=== PATIENT | male | born 1965 | race Caucasian/White ===

== ENCOUNTER 2017-01-07 06:08 | Inpatient (IN) | payer BC ==
[2016-12-26 14:50] VITALS: BMI 44.0
--- NOTE | 2016-12-26 15:23 | PAT Medication Instructions ---
Service Date Dec 26, 2016. Current Home Medication List Ibuprofen Tab (Advil), 800 MG PO PRN Lisinopril (Prinivil), 5 MG PO QAM Medication Instructions For Your Scheduled Surgery - Hold the following medications 7-10 days prior to surgery per surgeon's instructions: Ibuprofen Tab (Advil), 800 MG PO PRN - Hold the following medications the morning of surgery: Lisinopril (Prinivil), 5 MG PO QAM Nothing to eat or drink after midnight If you have any questions please call us at [phone] or [phone] or [phone]
[2016-12-26 15:50] LABS: BASO % 0.3 %; BASO ABS # 0.02 K/uL (0-0.2); COMPLETE YES; EOS % 0.7 %; HEMATOCRIT 42.5 % (42-52); IG% 0.2 %; LYMPH % 29.9 %; LYMPH ABS # 1.72 K/uL (1.2-3.4); MEAN CELL VOLUME 87.1 fL (80-100); MEAN CORPUSCULAR HEMOGLOBIN 28.7 pg (25-34); MEAN CORPUSCULAR HGB CONC 32.9 g/dl (32-36); MEAN PLATELET VOLUME 10.7 fL (7.4-10.4); MONO % 5.7 %; NEUT % 63.2 %; PLATELET COUNT 229 K/uL (130-400); RED BLOOD COUNT 4.88 M/uL (4.7-6.1); WHITE BLOOD COUNT 5.75 K/uL (4.8-10.8)
--- NOTE | 2016-12-26 15:50 | DIAGNOSTIC IMAGING REPORT ---
TWO VIEW CHEST CLINICAL HISTORY: Preoperative examination. FINDINGS: PA and lateral chest radiographs are obtained. No prior studies are available for comparison at the time of dictation. The examination is degraded by large body habitus. The cardiomediastinal silhouette is unremarkable. The lungs and pleural spaces are clear. There is no pneumothorax. The bony thorax appears intact. IMPRESSION: No active disease in the chest. Electronically signed by: Ishmael Kuhn M.D. 12/26/2016 3:48 PM Dictated Date/Time: 12/26/2016 3:47 PM
[2016-12-26 15:56] LABS: URINE APPEARANCE CLEAR (CLEAR); URINE BILIRUBIN NEG (NEG); URINE COLOR YELLOW; URINE NITRITE NEG (NEG); URINE SPECIFIC GRAVITY 1.023 (1.000-1.030); UROBILINOGEN NEG (NEG)
[2016-12-26 15:57] LABS: PROTHROMBIN TIME (PATIENT) 10.3 SECONDS (9.0-12.0)
[2016-12-26 16:12] LABS: MANUAL MICROSCOPIC REQUIRED? NO; REVIEW REQ? NO
[2016-12-26 16:25] LABS: BUN/CREATININE RATIO 14.3 (10-20); CALCIUM 8.8 mg/dl (8.5-10.1); CREATININE 1.2 mg/dl (0.60-1.40); POTASSIUM 3.8 mmol/L (3.5-5.1)
--- NOTE | 2016-12-29 16:55 | HISTORY & PHYSICAL EXAMINATION ---
DATE OF ADMISSION: 01/07/2017 CHIEF COMPLAINT: Right hip pain. HISTORY OF PRESENT ILLNESS: This 51-year-old white male presents to the office for evaluation of his right hip. He has had right hip pain for several months. Pain has become worse over the last 6 months. He does have difficulty with ambulation and activities of daily living. No specific trauma. X-rays and MRI have been obtained. No numbness or tingling. He is ambulatory with a limp. He has tried conservative care measures including activity modification, oral anti-inflammatories, and physical therapy without improvement. He is also using Meloxicam without improvement. He elects to proceed with right total hip arthroplasty in hopes of alleviating his pain. PAST MEDICAL HISTORY: Significant for hypertension, osteoarthritis, and obesity. PREVIOUS SURGERIES: Right shoulder arthroscopy, left knee arthroscopy. ALLERGIES: KNOWN ALLERGY TO PPD. CURRENT MEDICATIONS: Lisinopril 5 mg p.o. daily. SOCIAL HISTORY: The patient is retired from the [employer]. No tobacco use, occasional ETOH use. . FAMILY HISTORY: Significant for hypertension. REVIEW OF SYSTEMS: Significant for above stated conditions, otherwise unremarkable. PHYSICAL EXAMINATION: GENERAL: Well-developed, well-nourished, large white male in no acute distress. Sitting on a bed. Alert and oriented. SKIN: Warm and dry with good turgor. No rashes or lesions. No ecchymosis or erythema. HEENT: Normocephalic, atraumatic. Eyes PERRLA, EOMI. Nares patent bilaterally without turbinate enlargement. Oropharynx without erythema or exudate. No lesions noted. Uvula midline. Oral mucosa moist. Very good dentition. HEART: RRR. No MGR. LUNGS: Clear to auscultation bilaterally. No crackles, rhonchi or wheezing. Good air movement. ABDOMEN: Obese. Bowel sounds present x4, soft, nontender. No organomegaly. No masses. MUSCULOSKELETAL: Right hip has no obvious asymmetry or deformity. He does have an external rotation contracture. Flexion to about 90 degrees before onset of pain. Internal rotation is really only to neutral. External rotation of around 20 degrees before he is limited by pain. Ambulatory with an antalgic gait. No pain with palpation over his greater trochanter. Strength is 5/5 with excellent quad tone. NEUROLOGIC: Cranial nerves II through XII are intact. Gross sensation is intact across the lower extremities by soft touch. Peripheral pulses are 2+. DATA: Radiographic images previously obtained show end-stage DJD of the right hip with periarticular osteophytes, subchondral sclerosis, and joint space narrowing. IMPRESSION: Right hip end-stage degenerative joint disease. PLAN: Informed written consent was obtained to proceed with right total hip arthroplasty on 01/07/2017. Preoperative lab work, EKG, and chest x-ray have been ordered. Medical clearance has been requested from Dr. Macedo. The patient already has a walker and crutches. He would like to do home health for 2 weeks and then outpatient PT. Postoperative prescriptions for Percocet and Coumadin will be provided at discharge from the hospital. Call with any other concerns.
[~2017-01-07] VITALS: Ht 182.9 cm; Wt 146.6 kg
[2017-01-07] VITALS (19 sets, daily range): BP systolic 116–157; BP diastolic 77–101; PULSE 67–104; TEMP 36.4–36.7; O2SAT 92–99; Ht 182.9 cm; Wt 146.6 kg
[~2017-01-07 06:08] MED LIST: CEFAZOLIN 3000 MG/65 ML D5W 65 ML IV SCH; IBUP-103 PO; LACTATED RINGER'S 1000ML 1,000 ML IV SCH; LACTATED RINGER'S 1000ML IV SCH; LACTATED RINGER'S 500 ML IV SCH; LISI-729 PO; ROPIVACAINE 5MG/ML 30 ML 150 MG, BUPIVACAINE/EPINEPHR 0.5% MPF 30 ML, KETOROLAC TROMETH... INFIL SCH; TRANEXAMIC ACID INJ 1,000 MG in SODIUM CHLORIDE 0.9% 100ML 100 ML IV SCH
--- NOTE | 2017-01-07 06:20 | History & Physical Bridge Note ---
H&P Re-Evaluation Bridge Note: I have examined the patient, reviewed the History & Physical and in the interval since the performance of the History & Physical I have noted the following changes of clinical significance: No changes noted
[2017-01-07] MEDS ORDERED: BUPIVACAINE 0.5 % 5 MG/1 ML PF 10ML VIAL ONE (06:25)
[2017-01-07] MEDS ORDERED: POVIDONE-IODINE OP SOLN 30 ML BTL ONE (06:28)
[2017-01-07] MEDS ORDERED: ORTHO JOINT ANESTHETIC ONE (06:28)
[2017-01-07] MEDS ORDERED: MIDAZOLAM HCL 1 MG/ML 2ML VIAL ONE ×2 (06:34→06:39)
[2017-01-07] MEDS ORDERED: PROPOFOL IV EMULSION 10 MG/ML 20 ML VIAL IV ONE ×2 (06:34→07:29)
[2017-01-07] MEDS ORDERED: FENTANYL CITRATE INJ 50 MCG/1 ML 2 ML VIAL ONE ×2 (06:34→06:39)
[2017-01-07] MEDS ORDERED: LIDOCAINE HCL 2% 2 ML VIAL (20MG/ML) ONE (06:34)
[2017-01-07] MEDS ORDERED: MoRPHine SULFATE PF 1 MG/ML 10 ML AMP/VIAL ONE (06:41)
[2017-01-07] MEDS ORDERED: EpHEDrine SULFATE 50MG/5ML SYR ONE (07:25)
[2017-01-07] MEDS ORDERED: ONDANSETRON INJ 2 MG/ML 2 ML VIAL ONE (08:27)
[2017-01-07] MEDS ORDERED: LACTATED RINGER'S 1000ML 500 ML IV PRN (08:28)
[2017-01-07] MEDS ORDERED: SODIUM CHLORIDE 0.9% 1000ML 1,000 ML IV PRN (08:28)
[2017-01-07] MEDS ORDERED: NALOXONE HCL INJ 1 MG in SODIUM CHLORIDE 0.9% 1000ML 1,000 ML IV PRN ×4 (08:28)
[2017-01-07] MEDS ORDERED: NALOXONE HCL INJ 0.08 MG in SYRINGE 1.8 ML IV PRN (08:28)
[2017-01-07] MEDS ORDERED: ONDANSETRON INJ 2 MG/ML 2 ML VIAL IV PRN (08:30)
[2017-01-07] MEDS ORDERED: NO NARCOTICS OR SEDATIVES SCH (08:30)
[2017-01-07] MEDS ORDERED: NALOXONE HCL 0.4 MG/1 ML VIAL/CARP IV PRN (08:30)
[2017-01-07] MEDS ORDERED: NALBUPHINE HCL INJ 10 MG/ML AMP IV PRN (08:30)
[2017-01-07] MEDS ORDERED: PROMETHAZINE HCL INJ 25 MG in SODIUM CHLORIDE 0.9% 50ML 50 ML IV PRN (08:30)
[2017-01-07] MEDS ORDERED: EpHEDrine SULFATE INJ 50 MG/ML AMP IV PRN ×2 (08:30→10:00)
[2017-01-07] MEDS ORDERED: MoRPHine SULFATE PF 1 MG/ML 10 ML AMP/VIAL EPI PRN (08:30)
--- NOTE | 2017-01-07 08:47 | [facility] Post Operative Brief Note ---
Immediate Operative Summary Operative Date Jan 07, 2017. Pre-Operative Diagnosis Right Hip End-Stage Degenerative Joint Disease Post-Operative Diagnosis Right Hip End-Stage Degenerative Joint Disease Procedure(s) Performed Right Total Hip Arthroplasty--Uncemented Surgeon Dr. Weiss Pairing Machine Operator Surgeon(s) GINGER Yanez/ william med student Estimated Blood Loss 200cc Findings severe djd Fluids (cc crystalloids) 1450 Specimens A. Right Femoral Head Drains none Anesthesia spinal Complication(s) None Disposition Recovery Room / PACU
[2017-01-07] MEDS ORDERED: TAMSULOSIN HCL 0.4 MG CAP PO PRN (09:00)
[2017-01-07] MEDS ORDERED: BISACODYL 10 MG SUPP PR PRN (09:00)
[2017-01-07] MEDS ORDERED: ALUMINUM/MAGNESIUM/SIMETH (MAALOX MAX) 30 ML UDC PO PRN (09:00)
[2017-01-07] MEDS ORDERED: MAGNESIUM HYDROXIDE SUSP 30 ML UDC PO PRN (09:00)
[2017-01-07] MEDS ORDERED: ACETAMINOPHEN 325 MG TAB PO PRN (09:00)
--- NOTE | 2017-01-07 09:13 | OPERATIVE REPORT ---
DATE OF OPERATION: 01/07/2017 PREOPERATIVE DIAGNOSIS: Severe osteoarthritis with contracture, right hip. POSTOPERATIVE DIAGNOSIS: Same. OPERATION PERFORMED: Noncemented right total hip replacement. SUMMARY OF IMPLANTS: Size 56 shell acetabular cup hole eliminator, cancellous screw 6.5 x 30, acetabular liner 36 x 56 neutral, femoral stem 6 high offset, femoral head 36+5. ESTIMATED BLOOD LOSS: 200 mL. CRYSTALLOID: 1450 mL. PERIOPERATIVE SITUATION: Medically cleared male with intractable hip pain, has severe disease from chronic femoral acetabular impingement. At this point in time wants to proceed with surgical treatment. OPERATION: The patient appropriately identified, site verified, consent verified, 3 grams of Ancef confirmed as being given, as well as 1 gram of TXA. The patient was placed in left lateral decubitus position and the right lower extremity prepped and draped in usual routine fashion. A posterolateral approach to the hip was made. Sharp dissection carried to skin and blunt dissection down to the fascia. This was then incised under direct vision. Retractors placed. He was a very large man. Care taken to protect the sciatic nerve. Short external rotators were very contracted, released. The capsule was very contracted and excised. Marginal osteophytes removed from the acetabulum and then the hip dislocated. The femoral neck resected. Acetabular exposure required some trimming of further osteophytes, some labral debris, and then serial reaming up to a 56 and a 56 cup impacted into appropriate anteversion and inclination with excellent rim fit. A 6.5 x 30 screw was then placed superiorly to purchase the cup as well, excellent bite obtained. The wound was then irrigated, the trial liner seated. The femur was then flexed, internally rotated. The proximal femur prepared with the snuff box finisher, the canal finder, the lateralizing rasp, with serial broaching up to a size 6 with a size 6 fitting extremely well. The best stability and leg lengths were with a +5 head. All remaining trial implants were then removed. The wound irrigated with Betadine, Pulsavac. Hole eliminator seated, permanent liner seated, permanent stem and head seated. The hip reduced. It was stable to flexion beyond 100 degrees, internal rotation beyond 25 degrees with the leg flexed at 90. Adduction and external rotation, and extension and external rotation did not produce any dislocation. There was no impingement. The wound was then irrigated with Betadine, Pulsavac and then injected with the Orthomix and then closed with #2 Vicryl, #1 Vicryl, 2-0 Vicryl and stainless steel clips. Appropriate dressing applied and the patient transferred to recovery room in satisfactory condition having tolerated the procedure well. DVT prophylaxis per protocol. The summary of implants is noted above. EBL 200 mL. Crystalloid 1450. I attest to the content of the Intraoperative Record and any orders documented therein. Any exceptio ns are noted below.
--- NOTE | 2017-01-07 09:31 | DIAGNOSTIC IMAGING REPORT ---
PELVIS 1 OR 2 VIEW ROUTINE CLINICAL HISTORY: s/p R hip NGUYEN postoperative evaluation COMPARISON: None. DISCUSSION: Total right hip replacement. Good contact between prosthetic and underlying bone. Expected postoperative soft tissue change. IMPRESSION: Anatomic alignment status post total right hip replacement Electronically signed by: Tristen Prakash M.D. 01/07/2017 9:29 AM Dictated Date/Time: 01/07/2017 9:29 AM
--- NOTE | 2017-01-07 09:54 | Anesthesiology Progress Note ---
Anesthesia Post Op Note Date & Time Jan 07, 2017 at 09:53 Vital Signs Pain Intensity: 0 Vital Signs Past 12 Hours Date Time Temp Pulse Resp B/P Pulse Ox O2 Delivery O2 Flow Rate FiO2 01/07/17 09:45 68 16 129/71 97 Nasal Cannula 2 01/07/17 09:30 67 16 129/76 97 Nasal Cannula 2 01/07/17 09:20 36.7 66 21 125/69 97 Nasal Cannula 2 01/07/17 09:10 63 20 123/69 99 Nasal Cannula 2 01/07/17 09:02 36.8 69 12 119/73 97 Nasal Cannula 2 01/07/17 06:23 36.6 67 20 157/101 94 Room Air Notes Mental Status: alert / awake / arousable, participated in evaluation Pt Amnestic to Procedure: Yes Nausea / Vomiting: adequately controlled Pain: adequately controlled Airway Patency, RR, SpO2: stable & adequate BP & HR: stable & adequate Hydration State: stable & adequate Neuraxial Anesthesia: was administered, sensory block is resolving Anesthetic Complications: no major complications apparent
[2017-01-07] MEDS ORDERED: ATROPINE SULFATE 0.1 MG/ML 5ML SYR IV PRN (10:00)
--- NOTE | 2017-01-07 11:17 | OPERATIVE REPORT ---
DATE OF OPERATION: 01/07/2017 PREOPERATIVE DIAGNOSIS: Right hip endstage degenerative joint disease. POSTOPERATIVE DIAGNOSIS: Right hip same. PROCEDURE: Right hip total hip arthroplasty using DePuy implants. SURGEON: Dr. Weiss. VELVET CUTTER: Rodney Ndiaye PA-C. HISTORY OF PRESENT ILLNESS: This 51-year-old white male presented to the office with complaints of right hip pain that had been ongoing for several months. Pain became worse over the last 6 months. He was having difficulty with activities of daily living. He had tried conservative care measures without success. Preoperative x-rays were obtained. He elected to proceed with surgical intervention after being educated about potential risks and outcomes. OPERATION: The patient was administered a spinal anesthetic and then taken to the operating room where he was given sedation. He was prepped and draped in usual sterile fashion. Please see Dr. Weiss's operative report for specifics of the procedure. I was present for the entire case from initial patient positioning through final wound closure. Assistance was provided in tissue retraction, hemostasis, trial implant placement, final implant placement, and final wound closure. The patient was taken to the recovery room in satisfactory condition. I attest to the content of the Intraoperative Record and any orders documented therein. Any exceptio ns are noted below.
[2017-01-07] MEDS: D5W AND 1/2NSS + 20MEQ KCL 1,000 ML IV SCH ×2 (11:32→22:07)
[2017-01-07] MEDS: LISINOPRIL 5 MG TAB PO SCH (11:33)
[2017-01-07] MEDS: DOCUSATE SODIUM 100 MG CAP PO SCH ×3 (11:33→21:19)
[2017-01-07] MEDS: PANTOprazole SOD 40 MG TAB PO SCH (11:33)
[2017-01-07] MEDS: MULTIVITAMIN TAB PO SCH (11:33)
--- NOTE | 2017-01-07 11:40 | ORTHOPEDICS PROGRESS NOTE ---
DATE: 01/07/2017 Status post right total hip replacement. The patient is very comfortable. Has minimal if any discomfort. Denies any chest pain, nausea, vomiting, shortness of breath, fever, chills, or headache. Vital signs are stable. He is afebrile. Neurovascular check, femoral sciatic nerve is excellent. Postop x-rays look excellent. ASSESSMENT: Overall, doing well. Continue care pathway. Start Coumadin this evening. Can be out of bed. Weightbearing to tolerance with a walker or crutches pending his comfort. Expect discharge tomorrow based on his overall medical profile.
[2017-01-07] MEDS: FERROUS GLUCONATE 324 MG TAB PO SCH ×2 (12:34→17:13)
[2017-01-07] MEDS ORDERED: DEXAMETHASONE INJ 10 MG in SYRINGE 0 ML IV ONE (13:00)
[2017-01-07] MEDS: ACETAMINOPHEN IV 1,000 MG in EMPTY BAG 0 ML IV SCH ×2 (13:24→22:07)
[2017-01-07] MEDS: DiphenhydrAMINE HCL 50 MG/ML VIAL IV PRN ×2 (13:24→19:51)
[2017-01-07] MEDS: CEFAZOLIN IV 2,000 MG in DEXTROSE 5% 50ML 50 ML IV SCH ×2 (14:06→21:20)
[2017-01-07] MEDS ORDERED: TRANEXAMIC ACID INJ 1,000 MG in SODIUM CHLORIDE 0.9% 100ML 100 ML IV ONE (15:00)
[2017-01-07] MEDS ORDERED: WARF2TAB PO (15:40)
[2017-01-07] MEDS ORDERED: OXYC-57 PO (15:40)
[2017-01-07] MEDS ORDERED: WARFARIN SOD 5 MG TAB PO ONE (16:00)
[2017-01-07] MEDS: KETOROLAC TROMETHAMINE 30 MG/ML VIAL IV. SCH ×2 (18:15→23:28)
[2017-01-08] VITALS: O2SAT 92
[2017-01-08 01:00] VITALS: O2SAT 92
[2017-01-08 02:00] VITALS: O2SAT 90
[2017-01-08] MEDS ORDERED: METOCLOPRAMIDE HCL INJ 5 MG/ML 2 ML VIAL IV PRN (02:00)
[2017-01-08] MEDS ORDERED: ONDANSETRON INJ 2 MG/ML 2 ML VIAL IV PRN (02:00)
[2017-01-08] MEDS ORDERED: DiphenhydrAMINE HCL 50 MG/ML VIAL IV PRN (02:00)
[2017-01-08] MEDS ORDERED: DC INTRASPINAL MORPHINE ONE (02:00)
[2017-01-08] MEDS ORDERED: MoRPHine SULFATE 2 MG/ML CARP IV PRN (02:00)
[2017-01-08] MEDS ORDERED: OXYCODONE HCL IR 5 MG TAB (IMMEDIATE RELEASE) PO PRN (02:00)
[2017-01-08] MEDS ORDERED: KETOROLAC TROMETHAMINE 30 MG/ML VIAL IV. SCH (02:00)
[2017-01-08 03:53] VITALS: BP 131/74; PULSE 77; TEMP 36.7; O2SAT 96
[2017-01-08] MEDS: KETOROLAC TROMETHAMINE 30 MG/ML VIAL IV. SCH (05:51)
[2017-01-08] MEDS: ACETAMINOPHEN IV 1,000 MG in EMPTY BAG 0 ML IV SCH (05:51)
[2017-01-08 06:13] LABS: COMPLETE YES; HEMATOCRIT 36.1 % (42-52); IG% 0.3 %; LYMPH % 5.6 %; LYMPH ABS # 0.85 K/uL (1.2-3.4); MEAN CELL VOLUME 88.3 fL (80-100); MEAN CORPUSCULAR HEMOGLOBIN 28.9 pg (25-34); MEAN CORPUSCULAR HGB CONC 32.7 g/dl (32-36); MEAN PLATELET VOLUME 10.9 fL (7.4-10.4); MONO % 9.9 %; NEUT % 84.2 %; PLATELET COUNT 189 K/uL (130-400); RED BLOOD COUNT 4.09 M/uL (4.7-6.1); WHITE BLOOD COUNT 15.16 K/uL (4.8-10.8)
[2017-01-08 06:15] LABS: PROTHROMBIN TIME (PATIENT) 11.1 SECONDS (9.0-12.0)
[2017-01-08 06:42] LABS: BUN/CREATININE RATIO 17.2 (10-20); CALCIUM 8.3 mg/dl (8.5-10.1); CREATININE 1.4 mg/dl (0.60-1.40); POTASSIUM 4.8 mmol/L (3.5-5.1)
[2017-01-08 07:10] VITALS: BP 118/58; PULSE 71; TEMP 36.9; O2SAT 96
--- NOTE | 2017-01-08 07:16 | PROGRESS NOTE ---
DATE: 01/08/2017 Postop check right total hip replacement. The patient is doing well, has no major issues. Had one episode of nausea and vomiting yesterday but none since. Kept dinner down, doing well. Denies any chest pain, shortness of breath, fever, chills, headache. Vital signs are stable, afebrile. Neurovascular check femoral sciatic nerve is excellent. Wound clean, dry and intact. Hip located. Hematocrit stable. Electrolytes are good. ASSESSMENT: Overall, doing well. Will discharge today after PT, OT. Coumadin per nomogram. Discharge on 4 mg of Coumadin.
--- NOTE | 2017-01-08 07:20 | DISCHARGE SUMMARY ---
CHIEF COMPLAINT: Right hip pain. HISTORY OF PRESENT ILLNESS: The patient is admitted for right total hip replacement. Her hospital course has been uneventful. He is mobile. His pain is well managed. He notes no additional nausea, vomiting. Denies chest pain, shortness of breath, fever, chills, headache, nausea, vomiting. PAST MEDICAL HISTORY: Remarkable for hypertension, osteoarthritis, and obesity. PAST SURGICAL HISTORY: Include right shoulder arthroscopy, left knee arthroscopy. ALLERGIES: None to medications. HE IS ALLERGIC TO PPD. CURRENT MEDICATIONS: Include lisinopril 5 mg daily. 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 No tobacco or alcohol use, . FAMILY HISTORY: Remarkable for hypertension. REVIEW OF SYSTEMS: Reveals nothing additional. ASSESSMENT AND PLAN: Overall, doing well status post right total hip replacement. He will be discharge today after physical therapy, occupational therapy. We will discharge him on 4 mg of Coumadin daily. Follow up in 2 weeks for staple removal.
[2017-01-08] MEDS: D5W AND 1/2NSS + 20MEQ KCL 1,000 ML IV SCH (08:00)
--- NOTE | 2017-01-08 08:11 | Discharge Instructions ---
Discharge Instructions Admission Reason for Admission: Right Hip Degenerative Joint Disease Discharge Discharge Diagnosis / Problem: Right hip s/p total hip replacement Discharge Goals Goal(s): Decrease discomfort, Improve function, Increase independence Activity Recommendations Activity Limitations: as noted below Lifting Limitations: gradually increase as tolerated Exercise/Sports Limitations: until after follow-up appointment Shower/Bathe: keep incision dry Driving or Machine Use: No driving until cleared by Dr. Weiss Weightbearing Status: Right weightbearing (as tolerated) . Instructions / Follow-Up Instructions / Follow-Up New Medicine: * You will likely be taking one or more of these medicines: 1. Percocet - Take, as directed, when you need it, every four to six hours to control your pain. 2. Iron Sulfate - Take three times each day for the month after surgery to help you replace the blood lost during surgery. 3. Coumadin - Thins your blood to lessen the chance of forming a blood clot. The dose of this is different for each person and is based on your blood tests that are done twice a week. * The most common side effects of pain medicine and iron are nausea and constipation. If nausea or constipation is too much of a problem or if you have any questions about your new medicines or doses, call [facility] at . We will try to help you manage these issues. VERY IMPORTANT TO READ AND REVIEW" Blood Clots and Blood Thinning Medicine: * You are given Coumadin during the immediate post-operative period to lessen the risk of blood clots forming in your legs and/or lungs. Coumadin is usually given for six weeks after surgery. * The prescription is for 2 mg tablets. At discharge, you should understand your dose and take it all at the same time every day, preferably after dinner. * You need to get your blood checked 1 - 2 times per week for six weeks, or as directed. * If your dose needs to change, we will call you. Do not take your medication on the day of the blood test until we call you. * If you don't hear from us after your blood draws, keep taking the same dose. Pain: * The immediate post-operative period after hip replacement surgery is often quite painful. * You are given a prescription for pain medicine. You should take it, as directed, when you need it, especially before physical therapy and before going to bed. Pain that interferes with sleep is very common and can last several months. * You will likely need pain medicine for the first two to four weeks. It will not stop all of the pain. The pain will lessen and as you feel better, you may change to milder pain medicine such as Tylenol. * The most common side effects of pain medicine are nausea and constipation, so don't take more than you need. Physical Therapy: * Follow the "Hip Precautions Instructions." * In some cases, the social science teacher at the hospital will arrange to have a therapist come to your house for the first couple of weeks to help you learn these skills. * You need to practice on your own or with the help of a family member as needed. * When you learn these skills, most of the therapy can be done on your own. Home Exercise: * You were shown a series of exercises in the hospital. Do these exercises three to four times each day including the exercises you were shown in physical therapy. Walking: * Get up and walk several times each day. For the first four weeks, try not to stand or walk for more than one hour at a time. If you do stand or walk for more than one hour, you will not hurt anything, but your leg will likely swell. * As you feel comfortable, you may change from the walker or crutches to a cane and then to independent walking. SELF CARE INSTRUCTIONS AFTER TOTAL HIP REPLACEMENT Until the incision and soft tissues around your hip have healed, there is a possibility that the hip prosthesis could dislocate. A. Observe the following precautions to prevent dislocation: 1. Don't bend your hip greater than 90 degrees. 2. Avoid crossing your legs or ankles while standing or lying. 3. Sit with your feet placed 6 inches apart. 4. When sitting, keep your knees below your hips. Sit on a firm surface, avoid deep, soft chairs and couches. Use an elevated toilet seat in the bathroom. 5. Don't bend over at the waist. Use a long handled shoehorn and a sock aid to help you put on your shoes and socks. A environmental health and safety manager can help you package pick up objects that are too high or too low to reach. 6. Keep car riding to a minimum for at least one month after surgery. B. Your balance may be shaky for a while. Use crutches or a walker until directed by your doctor. C. Use hand rails when walking on stairs. D. Wear low heeled shoes with non-slip soles. E. Be sure that your floors are free of things that could trip you - throw rugs , electrical cords, small objects. Avoid wet and waxed floors, especially with crutches and canes. F. Try to walk several times a day with rest periods between. G. Continue with all the exercises taught to you in the hospital. Again, make walking a part of your daily routine. VERY IMPORTANT TO READ AND REVIEW A. Take Coumadin, or Lovenox (blood thinning medications) as directed by your doctor. If you are on Coumadin, have a pro-time (blood test) drawn according to your doctor's instructions. This will tell the doctor how well the Coumadin is thinning your blood. B. There are a few signs you need to watch for after you are home. If you notice any of the followin. Increased severe hip pain. Some pain is expected especially when you exercise. 2. Increased swelling in your leg or knee; pain or swelling of the calf muscle in either lower leg. 3. Any fluid drainage from the incision. 4. Shortness of breath or chest pain. TEDs/Elastic Stockings: * The white elastic stockings help limit swelling and prevent blood clots from forming in your legs. The more you wear them, the more they work. * Wear them for six weeks. Prevention of Infection: * Take antibiotics one hour before any dental cleaning, dental work, urological procedure, gastrointestinal procedure or any invasive surgery in order to prevent your new joint from getting infected. * You may get the antibiotics from the doctor performing the procedure or we will call in a prescription to the pharmacy of your choice. Call the office for a prescription at least 2 days prior to your appointment. Things to Watch For: * Drainage from the incision site that occurs more than one week after your surgery. * Severely increased leg pain or swelling. * Increased redness at the incision site. * Fever above 101 degrees Fahrenheit. * Unusual chest pain or shortness of breath. * Unusual pain or burning with urination. Current Hospital Diet Patient's current hospital diet: Regular Diet Discharge Diet Recommended Diet: Regular Diet Procedures Procedures Performed: Right Total Hip Arthroplasty--Uncemented Pending Studies Studies pending at discharge: no Medical Emergencies . Who to Call and When: Medical Emergencies: If at any time you feel your situation is an emergency, please call 911 immediately. . Non-Emergent Contact Non-Emergency issues call your: Primary Care Provider, Surgeon Call Non-Emergent contact if: temperature is above 100.5, wound has increased drainage, wound has increased redness, wound has increased pain, you have any medication questions . "Provider Documentation" section prepared by Rodney Ndiaye PA-C. VTE Core Measure Inpt VTE Proph given/why not?: Warfarin (Coumadin), T.E.D. Stockings, SCD's [place] Drug Monitoring Program Search Results: patient reviewed within database, no issues identified
--- NOTE | 2017-01-08 08:11 | Orthopedic Progress Note ---
Orthopedic Progress Note Date of Service Jan 08, 2017. Subjective Post OP Day: 1 Reports: feeling well, pain controlled w PO medications, Denies: SOB, calf pain , chest pain, complaints, light headedness, nausea / vomiting (vomited x 1 yesterday, but none overnight) Additional Notes: desires to go home today Objective calves soft nontender, N/V intact, hip located, capillary refill less than 2 sec., dressing C/D/I, incision C/D/I, A&O x3, toes mobile, CMS intact moderate drainage on bandages Date Time Temp Pulse Resp B/P Pulse Ox O2 Delivery O2 Flow Rate FiO2 01/08/17 07:10 36.9 71 16 118/58 96 Room Air 01/08/17 03:53 36.7 77 16 131/74 96 Room Air 01/08/17 02:00 16 90 01/08/17 01:00 16 92 01/08/17 00:00 16 92 01/07/17 23:35 36.6 74 16 116/77 93 Room Air 01/07/17 23:00 18 93 01/07/17 22:00 18 92 01/07/17 21:00 19 93 01/07/17 20:00 22 94 01/07/17 19:25 Room Air 01/07/17 19:00 17 94 01/07/17 18:00 16 93 01/07/17 17:00 16 93 01/07/17 16:00 16 95 01/07/17 15:24 36.7 83 18 148/89 94 Room Air 01/07/17 15:00 17 94 01/07/17 14:00 16 95 01/07/17 13:22 93 16 136/92 93 01/07/17 13:00 16 95 01/07/17 12:00 104 16 146/85 95 01/07/17 12:00 16 93 01/07/17 11:00 88 16 135/84 94 01/07/17 11:00 16 94 01/07/17 10:30 72 17 122/82 96 01/07/17 10:10 96 Nasal Cannula 2.0 01/07/17 10:00 97 Nasal Cannula 2.0 01/07/17 10:00 36.4 67 17 121/79 99 Nasal Cannula 2.0 01/07/17 10:00 16 97 01/07/17 09:45 68 16 129/71 97 Nasal Cannula 2 01/07/17 09:30 67 16 129/76 97 Nasal Cannula 2 01/07/17 09:20 36.7 66 21 125/69 97 Nasal Cannula 2 01/07/17 09:10 63 20 123/69 99 Nasal Cannula 2 01/07/17 09:02 36.8 69 12 119/73 97 Nasal Cannula 2 Laboratory Results 24 Hours: Test 01/08/17 05:49 White Blood Count 15.16 K/uL Red Blood Count 4.09 M/uL Hemoglobin 11.8 g/dL Hematocrit 36.1 % Mean Corpuscular Volume 88.3 fL Mean Corpuscular Hemoglobin 28.9 pg Mean Corpuscular Hemoglobin Concent 32.7 g/dl Platelet Count 189 K/uL Mean Platelet Volume 10.9 fL Neutrophils (%) (Auto) 84.2 % Lymphocytes (%) (Auto) 5.6 % Monocytes (%) (Auto) 9.9 % Eosinophils (%) (Auto) 0.0 % Basophils (%) (Auto) 0.0 % Neutrophils # (Auto) 12.76 K/uL Lymphocytes # (Auto) 0.85 K/uL Monocytes # (Auto) 1.50 K/uL Eosinophils # (Auto) 0.00 K/uL Basophils # (Auto) 0.00 K/uL Prothromb Time International Ratio 1.0 Prothrombin Time 11.1 SECONDS Assessment & Plan Assessment: Right hip post op day 1 s/p total hip arthroplasty Plan: PT/OT today anticipate D/C to home with home health later today if he does well with therapy coumadin per nomogram continue total hip precautions dressing changed by me. wound looks good. No current active drainage. Discharge Planning Discharge Planning: home with home health Pain Management: Percocet DVT Prophylaxis: TEDs, SCDs, Coumadin
[2017-01-08] MEDS: PANTOprazole SOD 40 MG TAB PO SCH (09:02)
[2017-01-08] MEDS: FERROUS GLUCONATE 324 MG TAB PO SCH (09:02)
[2017-01-08] MEDS: LISINOPRIL 5 MG TAB PO SCH (09:04)
[2017-01-08] MEDS: DOCUSATE SODIUM 100 MG CAP PO SCH (09:04)
[2017-01-08] MEDS: MULTIVITAMIN TAB PO SCH (09:04)
[2017-01-08 09:23] VITALS: BP 118/58; PULSE 71; TEMP 36.9; O2SAT 96
[2017-01-08] MEDS ORDERED: WARFARIN SOD 5 MG TAB PO SCH (12:00)
== END 2017-01-08 11:36 | disposition home health service (06) | DRG 470 ==
LOC: ENRESERVTM → ENRESERVDT → C.ACU 06:08 → C.3E 06:20 → EEVIPCON 01-21 10:45
PROVIDERS: ADMIT Physical Medicine & Rehabilitation Sports Medicine; ATTEND Physical Medicine & Rehabilitation Sports Medicine
PROC: 0SR90JA Replacement of Right Hip Joint with Synthetic Substitute, Uncemented, Open Approach (ICD-10-PCS; principal; 2017-01-07 08:50)
DX: M16.11 Unilateral primary osteoarthritis, right hip (principal); Z68.41 Body mass index [BMI] 40.0-44.9, adult; M24.551 Contracture, right hip; R11.2 Nausea with vomiting, unspecified; I10 Essential (primary) hypertension; E66.01 Morbid (severe) obesity due to excess calories; Z79.899 Other long term (current) drug therapy

== ENCOUNTER 2017-01-18 15:33 | Emergency (ER) | payer BC ==
[~2017-01-18] VITALS: Ht 182.9 cm; Wt 145.0 kg
[~2017-01-18 15:33] MED LIST changes: -CEFAZOLIN 3000 MG/65 ML D5W 65 ML IV SCH; -IBUP-103 PO; -LACTATED RINGER'S 1000ML 1,000 ML IV SCH; -LACTATED RINGER'S 1000ML IV SCH; -LACTATED RINGER'S 500 ML IV SCH; +OXYC-57 PO; -ROPIVACAINE 5MG/ML 30 ML 150 MG, BUPIVACAINE/EPINEPHR 0.5% MPF 30 ML, KETOROLAC TROMETH... INFIL SCH; -TRANEXAMIC ACID INJ 1,000 MG in SODIUM CHLORIDE 0.9% 100ML 100 ML IV SCH; +WARF2TAB PO
[2017-01-18 15:59] VITALS: TEMP 37.5; Ht 182.9 cm; Wt 145.0 kg
[2017-01-18] MEDS ORDERED: WARF2TAB8 PO (17:27)
--- NOTE | 2017-01-18 17:36 | EMERGENCY ROOM VISIT NOTE ---
History Report prepared by Alesha: Truong Carcamo Under the Supervision of: Dr. Brian Ovalles M.D. First contact with patient: 17:26 Chief Complaint: LEG PAIN,LEG INJURY Stated Complaint: BLOT CLOT IN RT LEG History of Present Illness The patient is a 51 year old male who presents to the Emergency Room with complaints of persistent right leg pain that started this morning. He notes that the skin is really red, and he does not think he injured it. The patient had his right hip replaced a week and a half ago. He is on Coumadin. The patient thinks he may have a blood clot. He notes that his hip feels pretty good. The patient denies any loss of consciousness, chest pain, or shortness of breath. Source of History: patient Onset: This morning Position: leg (right) Timing: other (persistent) Associated Symptoms: No LOC, No SOB, No chest pain Note: Associated symptoms: Right leg is really red. Review of Systems See HPI for pertinent positives & negatives. A total of 10 systems reviewed and were otherwise negative. Past Medical & Surgical Medical Problems: (1) DJD (degenerative joint disease) of hip Surgical Problems: (1) History of hip replacement Family History No pertinent family history Social History Smoking Status: Never Smoker Marital Status: Occupation Status: retired Current/Historical Medications Scheduled Enoxaparin (Lovenox), 145 MG SC BID Lisinopril (Prinivil), 5 MG PO QAM Warfarin Sodium (Coumadin), 12 MG PO DAILY Allergies Coded Allergies: Rifampin (Verified Allergy, Unknown, unknown reaction- per PCP records , ) Physical Exam Vital Signs Date Time Temp Pulse Resp B/P Pulse Ox O2 Delivery O2 Flow Rate FiO2 01/18/17 20:31 80 18 133/81 95 01/18/17 15:59 37.5 102 18 153/80 95 Room Air Physical Exam GENERAL: Patient is mildly anxious appearing and in no distress. HEENT: No acute trauma, normocephalic atraumatic, mucous membranes moist, no nasal congestion, no scleral icterus. NECK: No stridor, no adenopathy, no meningismus, trachea is midline. LUNGS: No dyspnea. Clear to auscultation and equal bilaterally. No wheeze, no rhonchi. HEART: Regular rate and rhythm. No murmurs, rubs, gallops appreciated. ABDOMEN: Soft, nontender, bowel sounds positive, no masses appreciated, no peritonitis. BACK: No midline tenderness, no CVA tenderness EXTREMITIES: Palpable cord extending from ankle to upper mid-thigh with overlying erythema. Well healing right lateral hip incision, lucian intact. NEUROLOGIC: Alert and oriented, no acute motor or sensory deficits, no focal weakness, cranial nerves grossly intact. SKIN: No rash, no jaundice, no diaphoresis. Medical Decision & Procedures ER Provider Diagnostic Interpretation: US results are stated below per my interpretation and the radiologist's interpretation. Venous Doppler right leg RIGHT VENOUS DOPP LOWER EXT UNILAT CLINICAL HISTORY: right leg swelling/pain, recent surge Right pain. Edema. TECHNIQUE: Venous Doppler COMPARISON STUDY: None FINDINGS: Findings consistent with thrombus within the right greater saphenous vein. This extends to the mid thigh to the mid calf. It is consistent with superficial thrombophlebitis. All major deep venous structures are unremarkable. Compressibility and augmentation characteristics are unremarkable. IMPRESSION: 1. Extensive superficial thrombophlebitis from the mid thigh to the lower leg. 2. No evidence for deep venous thrombosis Electronically signed by: Tristen Prakash M.D. 01/18/2017 6:55 PM Dictated Date/Time: 01/18/2017 6:54 PM Laboratory Results 01/18/17 17:50 01/18/17 17:50 Test 01/18/17 17:50 Red Blood Count 4.38 M/uL (4.7-6.1) Mean Corpuscular Volume 87.9 fL (80-100) Mean Corpuscular Hemoglobin 28.8 pg (25-34) Mean Corpuscular Hemoglobin Concent 32.7 g/dl (32-36) RDW Standard Deviation 41.9 fL (36.4-46.3) RDW Coefficient of Variation 13.0 % (11.5-14.5) Mean Platelet Volume 10.2 fL (7.4-10.4) Prothrombin Time 14.5 SECONDS (9.0-12.0) Prothromb Time International Ratio 1.3 (0.9-1.1) Activated Partial Thromboplast Time 33.6 SECONDS (21.0-31.0) Partial Thromboplastin Ratio 1.3 Anion Gap 9.0 mmol/L (3-11) Est Creatinine Clear Calc Drug Dose 117.5 ml/min Estimated GFR () 89.6 Estimated GFR (Non- 77.3 BUN/Creatinine Ratio 16.8 (10-20) Calcium Level 9.0 mg/dl (8.5-10.1) Laboratory results as reviewed by me. Medications Administered Medications (Trade) Dose Ordered Sig/Blanco Route Start Time Stop Time Status Last Admin Dose Admin Enoxaparin Sodium (Lovenox Inj) 145 mg NOW STAT SQ 01/18/17 19:22 2 19:24 DC 01/18/17 20:08 145 MG Miscellaneous (Lovenox Teaching Kit) 1 ea PRN STAT N/A 01/18/17 19:22 2 19:24 DC 01/18/17 20:08 1 EA Warfarin Sodium (Coumadin Tab) 12 mg NOW STAT PO 01/18/17 19:22 2 19:24 DC 01/18/17 20:05 12 MG ED Course 1728: The patient was evaluated in room C6. A complete history and physical exam was performed. 1858: I reevaluated the patient and he is resting comfortably. 1901: I discussed the patient with Dr. Felipe Valentin orthopedics - he feels that if the patient is otherwise stable, then discharge the patient and have him follow up with orthopedics. 1911: I reevaluated the patient and he is resting comfortably. The patient verbally expressed understanding and agreement of the treatment plan. The patient will be discharged. 1921: Ordered Coumadin Tab 12 mg PO, Lovenox Teaching Kit 1 ea N/A PRN, Lovenox Inj 145 mg SQ. Medical Decision Differential: DVT, CHF, Arterial Occlusion, Infectious, Joint Effusion, Trauma, Lymphedema, Idiopathic, Trauma, amongst other pathologies entertained. 51 yr old male arrives with right leg swelling/mass medially 1 week post hip replacement and difficulty getting therapeutic on Coumadin for DVT prophylaxis. US without DVT though shows extensive saphenous thrombophlebitis. No significant leg swelling, discoloration, nor neuro/art compromise in foot/leg. He has no PE symptoms and looks well. Not septic and no clear evidence of infection. Lovenox given, will increase Coumadin to 12mg as not therapeutic on 8-10mg. Stable and discussed symptoms requiring immediate RTED. Consults Time Called: 1849 Consulting Physician: Dr. Felipe Valentin orthopedics Returned Call: 1901 I discussed the patient with Dr. Felipe Valentin orthopedics - he feels that if the patient is otherwise stable, then discharge the patient and have him follow up with orthopedics. Impression Primary Impression: Saphenous vein thrombophlebitis Scribe Attestation The scribe's documentation has been prepared under my direction and personally reviewed by me in its entirety. I confirm that the note above accurately reflects all work, treatment, procedures, and medical decision making performed by me. Departure Information Dispostion Home / Self-Care Prescriptions Enoxaparin (LOVENOX) 150 Mg/1 Ml Inj 145 MG SC BID for 5 Days, #10 SYR Prov: Brian Ovalles M.D. 01/18/17 Warfarin Sodium (COUMADIN) 2 Mg Tab 12 MG PO DAILY, #60 TAB Prov: Brian Ovalles M.D. 01/18/17 Referrals Momo Weiss M.D. (PCP) Patient Instructions My [facility] Additional Instructions You were found to have a saphenous vein thrombophlebitis. There is no evidence of a DEEP vein thrombosis, however given the extent of your clot we are going to treat this as a deep vein thrombosis. Continue to use pressure stockings, keep leg elevated when possible and apply warm compresses to leg three to four times daily. Return immediately or call 911 if shortness of breath, chest pain, passing out, heart palpitations or other emergent concerns. Please follow up with Orthopedics tomorrow to discuss this and what best approach to Coumadin dosing will be. Return if head injury, bleeding, abdominal pain, headache or other concerns. Problem Qualifiers Primary Impression: Saphenous vein thrombophlebitis Laterality: right Qualified Codes: I80.01 - Phlebitis and thrombophlebitis of superficial vessels of right lower extremity
[2017-01-18 18:05] LABS: HEMATOCRIT 38.5 % (42-52); MEAN CELL VOLUME 87.9 fL (80-100); MEAN CORPUSCULAR HEMOGLOBIN 28.8 pg (25-34); MEAN CORPUSCULAR HGB CONC 32.7 g/dl (32-36); MEAN PLATELET VOLUME 10.2 fL (7.4-10.4); PLATELET COUNT 323 K/uL (130-400); RED BLOOD COUNT 4.38 M/uL (4.7-6.1); WHITE BLOOD COUNT 10.75 K/uL (4.8-10.8)
[2017-01-18 18:12] LABS: INR 1.3 (0.9-1.1); PARTIAL THROMBOPLASTIN RATIO 1.3; PROTHROMBIN TIME (PATIENT) 14.5 SECONDS (9.0-12.0)
[2017-01-18 18:25] LABS: BUN/CREATININE RATIO 16.8 (10-20); CREATININE 1.1 mg/dl (0.60-1.40); POTASSIUM 3.9 mmol/L (3.5-5.1)
--- NOTE | 2017-01-18 18:56 | DIAGNOSTIC IMAGING REPORT ---
Venous Doppler right leg RIGHT VENOUS DOPP LOWER EXT UNILAT CLINICAL HISTORY: right leg swelling/pain, recent surge Right pain. Edema. TECHNIQUE: Venous Doppler COMPARISON STUDY: None FINDINGS: Findings consistent with thrombus within the right greater saphenous vein. This extends to the mid thigh to the mid calf. It is consistent with superficial thrombophlebitis. All major deep venous structures are unremarkable. Compressibility and augmentation characteristics are unremarkable. IMPRESSION: 1. Extensive superficial thrombophlebitis from the mid thigh to the lower leg. 2. No evidence for deep venous thrombosis Electronically signed by: Tristen Prakash M.D. 01/18/2017 6:55 PM Dictated Date/Time: 01/18/2017 6:54 PM
[2017-01-18] MEDS ORDERED: ENOXAPARIN 150 MG/1ML SYR SQ STA (19:22)
[2017-01-18] MEDS ORDERED: WARFARIN SOD 4 MG TAB PO STA (19:22)
[2017-01-18] MEDS ORDERED: LOVENOX TEACHING KIT STA (19:22)
[2017-01-18] MEDS ORDERED: LVNIS150 SC (19:57)
[2017-01-18] MEDS ORDERED: WARF2TAB PO (19:57)
[2017-01-18 20:31] VITALS: BP 133/81; PULSE 80; O2SAT 95
== END 2017-01-18 20:31 | disposition home or self-care (01) ==
LOC: C.EDB 15:34 → C.EDC 20:31
DX: I80.01 Phlebitis and thrombophlebitis of superficial vessels of right lower extremity (principal); M16.10 Unilateral primary osteoarthritis, unspecified hip; Z96.641 Presence of right artificial hip joint; Z79.01 Long term (current) use of anticoagulants; Z79.899 Other long term (current) drug therapy; Z88.8 Allergy status to other drugs, medicaments and biological substances

== ENCOUNTER → 2017-03-02 | Outpatient (CLI) | payer BC ==
[~2017-03-02] MED LIST changes: +LVNIS150 SC; -OXYC-57 PO
== END | disposition home or self-care (01) ==
LOC: C.RDSM 08:45
PROVIDERS: ATTEND Physical Medicine & Rehabilitation Sports Medicine
DX: M16.11 Unilateral primary osteoarthritis, right hip (principal); Z96.649 Presence of unspecified artificial hip joint

== ENCOUNTER → 2017-06-01 | Outpatient (CLI) | payer BC | END | disposition home or self-care (01) | LOC: C.RDSM 14:44 | PROVIDERS: ATTEND Physical Medicine & Rehabilitation Sports Medicine | DX: Z96.641 Presence of right artificial hip joint (principal) ==

== ENCOUNTER → 2017-12-07 | Outpatient (CLI) | payer BC | END | disposition home or self-care (01) | LOC: C.RDSM 18:22 | PROVIDERS: ATTEND Physical Medicine & Rehabilitation Sports Medicine | DX: Z96.641 Presence of right artificial hip joint (principal) ==